=== PATIENT | female | born 1990 | race Caucasian/White ===

== ENCOUNTER → 2017-12-16 12:36 | Outpatient (CLI) | payer BC, SELFPAY | PROVIDERS: Family Provider Family Medicine; PCP Family Medicine; Visit Provider Nurse Practitioner Obstetrics & Gynecology | DX: O20.9 Hemorrhage in early pregnancy, unspecified (principal) | CPT/HCPCS: 36415; 84702 ==

== ENCOUNTER → 2017-12-16 12:43 | Outpatient (CLI) | payer BC, SELFPAY ==
--- NOTE | 2017-12-16 12:46 | US_ITS ---
US OB transvaginal CLINICAL INDICATION: ITS.REASON: Bleeding in Early ORDERING PHYSICIAN: Ziyad Thao MD PATIENT AGE: 27 years Comparison: None FINDINGS: Transvaginal images are performed. No evidence of intrauterine . There is an oval cystic area in the lower cervix. This is in or near the endocervical canal. This measures 8 x 5 mm. This may represent a nabothian cyst. A small gestational sac in the cervix would be included in the differential diagnosis. Consider correlation with beta hCGs and short-term sonographic follow-up. There is no evidence of hyperechoic decidual reaction around the sac. The endocervical canal does appear to be just anterior to this cystic area. Endometrial thickness is 5 mm. The left ovary is 3 x 2 cm and contains a 1 cm cyst. The right ovary is 3 x 1.7 cm containing multiple small follicles. Small follicles are present on the left as well. No cul-de-sac fluid. IMPRESSION: 1. No intrauterine gestation apparent. 2. Small cystic area within the cervix may be due to nabothian cyst. Recommend follow-up to confirm that this does not represent an endocervical gestational sac or expelling gestation.
[2017-12-16 13:36] LABS: HCG,Quantitative 43 mIU/mL
== END ==
PROVIDERS: Family Provider Family Medicine; PCP Family Medicine; Visit Provider Nurse Practitioner Obstetrics & Gynecology
DX: O20.9 Hemorrhage in early pregnancy, unspecified (principal)
CPT/HCPCS: 36415; 76817; 84702

== ENCOUNTER → 2018-05-02 10:46 | Outpatient (CLI) | payer BC, SELFPAY ==
[2018-05-02 14:14] LABS: Free Thyroxine Index 2.5 ug/dL (5.93-13.13); T4 (Thyroxine) 8.6 ug/dl (4.7-13.3); Thyroid Stimulating Hormone 1.88 uIU/ml (0.358-3.740); Triiodothryronine (T3) Uptake 29 % (31-39)
[2018-05-04 17:16] LABS: FSH 2.9 mIU/mL (.); Prolactin 20.3 ng/mL (4.8-23.3); Triiodothyronine (T3) Free 3.7 pg/mL (2.0-4.4)
== END ==
PROVIDERS: Visit Provider Nurse Practitioner Obstetrics & Gynecology
DX: R53.82 Chronic fatigue, unspecified (principal)
CPT/HCPCS: 36415; 83001; 83002; 84146; 84436; 84443; 84479; 84481